=== PATIENT | female | born 1995 | race Caucasian/White ===

== ENCOUNTER 2018-08-30 19:23 | Emergency (ER) | payer OTHER ==
[~2018-08-30] VITALS: Ht 165.1 cm; Wt 65.9 kg
--- NOTE | 2018-08-30 19:34 | NUR ---
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 GIVEN 4MG ZOFRAN IN TRAIGE PER ERP
[2018-08-30] MEDS ORDERED: ONDANSETRON ODT 4 MG PO ONE (20:00)
[2018-08-30 20:56] LABS: BASOPHILS # (AUTO) 0.01 x10^3/uL (0-0.1); BASOPHILS % (AUTO) 0 % (0-1); EOSINOPHILS # (AUTO) 0.15 x10^3/uL (0-0.4); EOSINOPHILS % (AUTO) 1 % (1-7); LYMPHOCYTES # (AUTO) 0.86 x10^3/uL (1-3.4); LYMPHOCYTES % (AUTO) 6 % (22-44); MD NO; MEAN CORPUSCULAR HEMOGLOBIN 28.4 pg (27.0-34.8); MEAN CORPUSCULAR HGB CONC 33.6 g/dL (32.4-35.8); MEAN CORPUSCULAR VOLUME 84.4 fL (80-100); MEAN PLATELET VOLUME 9.5 fL (7.4-10.4); MONOCYTES % (AUTO) 2 % (2-9); NEUTROPHILS # (AUTO) 13.84 x10^3/uL (1.8-6.8); NEUTROPHILS % (AUTO) 91 % (42-75); PLATELET COUNT 362 x10^3/uL (130-400); RED BLOOD COUNT 4.64 x10^6/uL (3.82-5.3); RED CELL DISTRIBUTION WIDTH 14.5 % (9.6-15.2)
[2018-08-30 21:03] LABS: ALBUMIN 4.2 g/dL (3.4-5.0); ANION GAP 5 mmol/L (5-15); CALCIUM 9.2 mg/dL (8.5-10.1); CHLORIDE 108 mmol/L (98-107)
[2018-08-30 21:10] LABS: ALANINE AMINOTRANSFERASE 21 U/L (12-78); ALKALINE PHOSPHATASE 52 U/L (45-117); BILIRUBIN,TOTAL 0.3 mg/dL (0.2-1.0); CREATININE 0.62 mg/dL (0.55-1.02); TOTAL PROTEIN 8.9 g/dL (6.4-8.2)
--- NOTE | 2018-08-30 21:23 | NUR ---
Patient roomed at this time.
[2018-08-30 22:05] LABS: MICROSCOPIC INDICATED
[2018-08-30 22:08] LABS: CULTURE INDICATED? NO
--- NOTE | 2018-08-30 22:13 | NUR ---
Dr. Angelo at bedside evaluating patient.
[2018-08-30] MEDS ORDERED: FAMOTIDINE 20 MG TABLET ONE (22:28)
[2018-08-30] MEDS ORDERED: FAMOTIDINE 20 MG TABLET PO ONE (22:30)
--- NOTE | 2018-08-30 22:30 | NUR ---
Patient given water for oral fluid challenge and encouraged to drink slowly.
--- NOTE | 2018-08-30 22:50 | NUR ---
Patient appears to be tolerating oral fluids at this time.
[2018-08-30 22:51] VITALS: BP 116/65
--- NOTE | 2018-08-30 23:04 | NUR ---
Discharge instructions discussed with patient including when to return to emergency department, patient verbalizes understanding. Prescriptions provided with instruction for use. Patient ambulates with steady gait to discharge desk in no acute distress.
== END 2018-08-30 23:07 | disposition home or self-care (01) ==
LOC: ED 22:38
DX: E86.0 Dehydration (principal); R10.30 Lower abdominal pain, unspecified; F41.1 Generalized anxiety disorder; F32.9 Major depressive disorder, single episode, unspecified
CPT/HCPCS: 36415; 80053; 81001; 83690; 84703; 85025; 99283; Q0162